=== PATIENT | female | born 1985 | race Caucasian/White ===

== ENCOUNTER → 2017-02-10 | Outpatient (CLI) | payer MEDICAID ==
--- NOTE | 2017-02-11 09:09 | RADIOLOGY REPORT (SQ) ---
EXAM DESCRIPTION: HAND LEFT 3 VIEWS COMPLETED DATE/TIME: 02/10/2017 4:20 pm REASON FOR STUDY: INJURY OF LEFT HAND, INITIAL ENCOUNTER COMPARISON: None. EXAM PARAMETERS: NUMBER OF VIEWS: Three views. TECHNIQUE: AP, lateral and oblique radiographic images acquired of the left hand. LIMITATIONS: None. FINDINGS: MINERALIZATION: Normal. BONES: No acute fracture or dislocation. No worrisome bone lesions. JOINTS: No effusions. SOFT TISSUES: Diffuse dorsal left hand soft tissue swelling. No foreign body. OTHER: No other significant finding. IMPRESSION: Diffuse dorsal left hand soft tissue swelling. No acute displaced fracture of the hand or wrist. If there is strong clinical suspicion for carpal b one fracture, consider CT for followup TECHNICAL DOCUMENTATION: JOB ID: [id number] [employer]- All Rights Reserved
== END ==
LOC: RAD 16:01
PROVIDERS: ATTEND Physician Assistant
DX: S69.92XA Unspecified injury of left wrist, hand and finger(s), initial encounter (principal); X58.XXXA Exposure to other specified factors, initial encounter